=== PATIENT | female | born 1990 | race Caucasian/White ===

== ENCOUNTER 2020-10-30 17:12 | Emergency (ER) | payer BC ==
[~2020-10-30] VITALS: Ht 167.6 cm; Wt 56.7 kg
[2020-10-30] MEDS ORDERED: PRENATAL VITAM1 EAC7 PO (17:39)
[2020-10-30] MEDS ORDERED: ACETAMINOPHEN650 M2 PO (22:00)
== END 2020-10-30 22:46 | disposition home or self-care (01) ==
LOC: ER 17:12
DX: O46.8X1 Other antepartum hemorrhage, first trimester (principal); Z3A.01 Less than 8 weeks gestation of pregnancy; Z20.828 Contact with and (suspected) exposure to other viral communicable diseases